=== PATIENT | female | born 1945 | race Caucasian/White ===

== ENCOUNTER 2017-10-21 06:29 | Day surgery (SDC) | payer MEDICARE ==
[2017-10-16 13:00] VITALS: BMI 33.2
[~2017-10-21 06:29] MED LIST: ALPRAZolam 0.25 MG TAB PO PRN; ASPIRIN 325 MG TAB PO STA; NITROGLYCERIN SL TABS 0.4 MG TAB SUBLINGUAL PRN; SODIUM CHLORIDE 0.9% 1,000 ML in EMPTY BAG 1 BAG IV ONE
[2017-10-21 07:06] LABS: Basophils # (A) 0.1 k/uL (0-0.2); Basophils % (A) 1 %; Eosinophils # (A) 0.3 k/uL (0-0.7); Eosinophils % (A) 3 %; HCT 42.8 % (34.0-46.0); HGB 13.9 gm/dL (11.4-16.0); Lymphocytes # (A) 2.8 k/uL (1.0-4.8); Lymphocytes % (A) 28 %; MCH 29.8 pg (25.0-35.0); MCHC 32.5 g/dL (31.0-37.0); MCV 91.7 fL (80.0-100.0); Mean Platelet Volume 8.4; Monocytes # (A) 0.7 k/uL (0-1.0); Monocytes % (A) 7 %; Neutrophils % (A) 60 %; Platelet Count 253 k/uL (150-450); RBC 4.66 m/uL (3.80-5.40); RDW 14.2 % (11.5-15.5); WBC 10.1 k/uL (3.8-10.6)
[2017-10-21 07:22] LABS: Anion Gap 13 mmol/L; Blood Urea Nitrogen 24 mg/dL (7-17); Calcium 9.6 mg/dL (8.4-10.2); Carbon Dioxide 20 mmol/L (22-30); Chloride 107 mmol/L (98-107); Glucose 164 mg/dL (74-99); Sodium 140 mmol/L (137-145)
[2017-10-21] MEDS ORDERED: MIDAZOLAM 2 MG/2 ML VIAL ONE (07:27)
[2017-10-21] MEDS ORDERED: LIDOCAINE 1% INJ 10MG/ML (20 ML MDV) ONE (07:27)
[2017-10-21] MEDS ORDERED: fentaNYL (PF) 50 MCG/ML 2 ML AMP ONE (07:27)
[2017-10-21] MEDS ORDERED: diphenhydrAMINE 50 MG/ML 1 ML VIAL ONE (07:36)
[2017-10-21 07:37] LABS: Potassium 4.9 mmol/L (3.5-5.1)
[2017-10-21] MEDS ORDERED: diphenhydrAMINE 50 MG/ML 1 ML VIAL IVP ONE (07:44)
[2017-10-21] MEDS ORDERED: MIDAZOLAM 2 MG/2 ML VIAL IVP ONE (07:44)
[2017-10-21] MEDS ORDERED: LIDOCAINE 1% INJ 10MG/ML (10 ML MDV) SQ ONE (07:46)
[2017-10-21] MEDS ORDERED: CLOPIDOGREL 75 MG TAB ONE (08:07)
[2017-10-21] MEDS ORDERED: CLOPIDOGREL 75 MG TAB PO ONE (08:08)
--- NOTE | 2017-10-21 08:30 | LTR ---
October 21, 2017 Dear Bridger: I performed cardiac catheterization on Chantel Ramirez. A detailed catheterization note is enclosed for your records. In brief, she presented to us with episodes of chest pressure associated with atrial fibrillation with rapid ventricular rate and also had ischemia in the inferior wall on a stress test. On the cardiac catheterization I performed, she has a 95% long segment of stenosis in the proximal right coronary artery for which she will undergo angioplasty. She also has a lesion in the LAD that we may or may not stent at this time. Thank you for allowing us to participate in this pleasant lady. Sincerely, MD ELLEN Dhillon / MARÍA: [id number] /
--- NOTE | 2017-10-21 08:30 | CC ---
CARDIAC CATHETERIZATION REPORT Referring physician is Dr. Maldonado. INDICATION: Unstable angina. PROCEDURE NOTE: After obtaining informed consent, left heart catheterization and coronary angiogram were performed via the right femoral artery using standard Roopa catheters. The patient tolerated the procedure well without any obvious immediate complications. A femoral angiogram was performed at the end of the procedure. The patient received moderate conscious sedation and total sedation time was 17 minutes. FINDINGS: 1. HEMODYNAMICS: Left ventricular end-diastolic pressure is 14 to 16 mm. There is no significant gradient across the aortic valve. 2. LEFT VENTRICULOGRAM: Left ventriculogram is not performed. 3. ANGIOGRAPHIC DATA: 4. Left main coronary artery: Left main coronary artery is a normal-sized vessel and is free of stenosis. Divides into left anterior descending coronary artery and circumflex coronary artery. LAD shows an area of plaque rupture with moderate to severe stenosis in the proximal part. It seems to be 50% to 70%. In some views, it appears like a 70% stenosis. Right coronary artery is a large dominant vessel shows a 95% long area of stenosis in the proximal part. CONCLUSIONS: 1. A 95% stenosis involving the proximal right coronary artery. 2. A 50% to 70% stenosis involving the proximal left anterior descending artery. PLAN: I reviewed angiographic data with Dr. Carroll. He will perform angioplasty of the right coronary artery. We may do an FFR of the LAD or we may treat her medically and do a stress test down the road and if she has ischemia in LAD bring her back and do LAD stenting. MMODL / IJN: [id number] /
[2017-10-21] MEDS ORDERED: BIVALIRUDIN 250 MG VIAL IV ONE (08:38)
[2017-10-21] MEDS ORDERED: BIVALIRUDIN 250 MG in SODIUM CHLORIDE 0.9% 50 ML IV ONE (08:41)
[2017-10-21] MEDS ORDERED: fentaNYL (PF) 50 MCG/ML 2 ML AMP IV ONE (08:41)
[2017-10-21] MEDS ORDERED: IOPAMIDOL-370 125ML BTL INJ ONE (08:45)
[2017-10-21] MEDS ORDERED: NITROGLYCERIN 1000MCG/10ML SYRINGE INTRACORON ONE (08:50)
[2017-10-21] MEDS ORDERED: IOPAMIDOL-370 100ML BTL INJ ONE (09:10)
[2017-10-21] MEDS ORDERED: MAG HYDROX/AL HYDROX/SIMETH 30 ML CUP PO PRN (09:17)
[2017-10-21] MEDS ORDERED: NITROGLYCERIN SL TABS 0.4 MG TAB SUBLINGUAL PRN ×2 (09:17→09:19)
[2017-10-21] MEDS ORDERED: ATROPINE SULFATE 0.1 MG/ML 10ML SYRINGE IV PRN (09:17)
[2017-10-21] MEDS ORDERED: RX INFO: IV CONTRAST WAS GIVEN 1 EACH MISC MISCELLANE PRN (09:17)
[2017-10-21] MEDS ORDERED: ZOLPIDEM 5 MG TAB PO PRN (09:17)
[2017-10-21] MEDS ORDERED: SODIUM CHLORIDE 0.9% 1,000 ML IV SCH (09:30)
--- NOTE | 2017-10-21 09:45 | PTCA ---
PERCUTANEOUSTRANS CORORONARY ANGIOGRAPHY Mrs. Ramirez is a 72-year-old female who presented recently with symptoms of paroxysmal atrial fibrillation as well as chest discomfort and had an abnormal myocardial perfusion imaging. She was evaluated by Dr. Griffin and underwent cardiac catheterization, was found to have critical stenosis involving the LAD and the right coronary artery. In view of that, recommendation was made regarding angioplasty and stenting. The procedure as well as the risks and complication were discussed with the patient who is in full understanding and agreement. PROCEDURE: A 6-Portuguese FR4 guiding catheter was introduced in the system. After cannulating the right coronary ostium, a 0.014 balanced medium weight J-wire was advanced across the lesion, positioned distally then a 2.5 x 12 mm Trek balloon was advanced in two inflations and maximum of 10 atmospheres were done. Following that the balloon was removed then a 3.0 x 18 mm Xience Alpine stent was deployed, postdilated at 16 atmospheres. After the last inflation, after appropriate wait, the balloon and the guidewire were withdrawn back in the guiding catheter. Images were obtained and repeated. Those images reveal stable successful stenting. At that point, the guiding catheter, the balloon and the guidewire were removed and a 6-Portuguese FR4 guiding catheter introduced in the system. After cannulating the left main, a 0.014 balanced medium weight J-wire was advanced into the distal LAD, positioned distally and a 2.75 x 15 mm Xience Alpine stent was advanced, deployed and postdilated at 14 atmospheres. After the last inflation, after appropriate wait, the balloon and the guidewire withdrawn back in the guiding catheter. Images were obtained and repeated. Those images reveal stable successful stenting. At that point, the guiding catheter, the balloon and the guidewire were removed. The sheath was removed. Hemostasis was obtained with deployment of an Angio-Seal. There was no immediate complication. Patient was returned to room in stable condition. Of note, the patient had chest discomfort and EKG changes with the inflation that resolved at the end procedure. She received Angiomax per protocol as well as oral loading dose of clopidogrel. She had bradycardia during the RCA inflations. RESULTS: 1. Successful stenting of the proximal right coronary artery with reduction of stenosis from 95% to 0%. 2. Successful stenting of the proximal left anterior descending artery with reduction of stenosis from 75% to 0%. RECOMMENDATION: Patient will be continued on aspirin, Plavix and statin. The importance of dual antiplatelet treatment were discussed with the patient and her family who are in full understanding and agreement. Further evaluation will need to be made regarding the issue of her paroxysmal atrial fibrillation. Duration of procedure is 32 minutes. ELLEN / CARIDADN: [id number] /
[2017-10-21] MEDS: ALBUTEROL NEBULIZED 2.5 MG/3 ML INHALATION PRN (16:07)
[2017-10-21] MEDS: SYMBICORT 80-4.5 MCG INHALER INHALATION SCH (20:28)
[2017-10-21] MEDS ORDERED: ATORVASTATIN 80 MG TAB PO SCH (21:00)
[2017-10-22 03:51] VITALS: TEMP 97.8
[2017-10-22 05:59] LABS: Glucose,Whole Blood 127 mg/dL (75-99)
[2017-10-22 07:20] LABS: Anion Gap 8 mmol/L; Blood Urea Nitrogen 15 mg/dL (7-17); Calcium 8.9 mg/dL (8.4-10.2); Carbon Dioxide 25 mmol/L (22-30); Chloride 107 mmol/L (98-107); Glucose 129 mg/dL (74-99); Potassium 4.4 mmol/L (3.5-5.1); Sodium 140 mmol/L (137-145)
[2017-10-22] MEDS ORDERED: PANTOPRAZOLE 40 MG TABLET PO SCH (07:30)
[2017-10-22 08:05] VITALS: BP 133/63; RESP 16
[2017-10-22] MEDS ORDERED: FLUTICASONE 50MCG/SPRAY NASAL 16GM EA NOSTRIL SCH (09:00)
[2017-10-22] MEDS ORDERED: DILTIAZEM CD 180 MG CAP.ER.24H PO SCH (09:00)
[2017-10-22] MEDS ORDERED: ASPIRIN 81 MG PO SCH (09:00)
[2017-10-22] MEDS: SYMBICORT 80-4.5 MCG INHALER INHALATION SCH (09:01)
[2017-10-22] MEDS: ALBUTEROL NEBULIZED 2.5 MG/3 ML INHALATION PRN (09:01)
[2017-10-22 09:15] VITALS: PULSE 72
[2017-10-22] MEDS ORDERED: CLOPIDOGREL 75 MG TAB PO SCH (09:18)
--- NOTE | 2017-10-22 10:55 | PN ---
PROGRESS NOTE Mrs. Ramirez is a 72-year-old female who presented with symptoms of angina pectoris and abnormal myocardial perfusion imaging, underwent cardiac catheterization by Dr. Griffin and was found to have critical stenosis involving the LAD and the right coronary artery, underwent stenting of both vessels. She is doing well this morning. Her breathing is stable. She is denying any chest pain. She denies any dizziness or palpitation. She is ambulating without any difficulty. She continues to be at this time on aspirin once a day, Plavix 75 mg daily, Lipitor 80 mg daily, diltiazem CD 180 mg daily. PHYSICAL EXAMINATION: Blood pressure 133/60 with the heart rate in the 80s. LUNGS: Clear. HEART: Regular rate and rhythm. S1, S2. No S3 with a systolic murmur, no diastolic murmur. ABDOMEN: Soft, nontender. EXTREMITIES: No edema. Right groin: No hematoma. EKG revealed sinus mechanism with no acute changes. LAB DATA: Lab data revealed BUN and creatinine 15 and 0.6. IMPRESSION: 1. Status post stenting of the right coronary artery and the left anterior descending artery, stable. 2. Paroxysmal atrial fibrillation could be related to the ischemic heart disease. 3. Hypertension. 4. Hyperlipidemia. RECOMMENDATION: The patient will be discharged home today and followed as an outpatient with Dr. Griffin. An evaluation will be done regarding the need to resume her anticoagulation at that time. MMODL / IJN: [id number] /
== END 2017-10-22 14:15 | disposition home or self-care (01) ==
LOC: CATHCVL 06:29 → 6SEL 13:09 → CATHCVL 10-22 14:15
PROVIDERS: ATTEND Internal Medicine Cardiovascular Disease
DX: I25.110 Atherosclerotic heart disease of native coronary artery with unstable angina pectoris (principal); I10 Essential (primary) hypertension; I48.0 Paroxysmal atrial fibrillation; I73.9 Peripheral vascular disease, unspecified; Z82.49 Family history of ischemic heart disease and other diseases of the circulatory system; Z79.01 Long term (current) use of anticoagulants; Z79.82 Long term (current) use of aspirin; Z79.899 Other long term (current) drug therapy; Z79.51 Long term (current) use of inhaled steroids; Z88.2 Allergy status to sulfonamides
CPT/HCPCS: 94640 ×4; 93458; 80048 ×2; 85025; C9600 ×2; C1769 ×2; C1760; C1887 ×2; C1725; C1894; C1874; J2250; J1200; J3010; J0583; J2001; Q9967 ×2

== ENCOUNTER → 2020-11-14 | Outpatient (CLI) | payer MEDICARE ==
--- NOTE | 2020-11-19 09:17 | MM ---
Reason for exam: screening (asymptomatic). Last mammogram was performed 1 year and 9 months ago. History: Patient is postmenopausal and is nulliparous. Family history of breast cancer in mother, breast cancer in grandmother, and breast cancer in sister. Benign excisional biopsy of the left breast, 1994. Physical Findings: A clinical breast exam by your physician is recommended on an annual basis and results should be correlated with mammographic findings. MG 3D Screening Mammo W/Cad Bilateral CC and MLO view(s) were taken. Prior study comparison: February 08, 2019, mammogram, performed at [facility]. May 12, 2017, mammogram, performed at [facility]. There are scattered fibroglandular densities. Stable benign calcifications. There is no discrete abnormality. No significant changes when compared with prior studies. ASSESSMENT: Benign, BI-RAD 2 RECOMMENDATION: Routine screening mammogram of both breasts in 1 year.
== END | disposition home or self-care (01) ==
LOC: RADMAMWWP 14:43
PROVIDERS: ATTEND Family Medicine
DX: Z12.31 Encounter for screening mammogram for malignant neoplasm of breast (principal); Z78.0 Asymptomatic menopausal state; Z80.3 Family history of malignant neoplasm of breast
CPT/HCPCS: 77063; 77067

== ENCOUNTER → 2021-11-29 | Outpatient (CLI) | payer MEDICARE ==
--- NOTE | 2021-12-02 09:22 | MM ---
Reason for Exam: Screening (asymptomatic). Last screening mammogram was performed 12 month(s) ago. Patient History: Menarche at age 15. Patient has no children. Left ovary removed at age 50. Right ovary removed at age 50. Hysterectomy at age 50. Postmenopausal. Ovarian cancer, age 50. 1995, Benign Excisional Biopsy on the left side. Maternal grandmother had breast cancer. Sister had breast cancer, age 52. Mother had breast cancer, age 70. Risk Values: Anjana 5 year model risk: 7.2%. NCI Lifetime model risk: 15.8%. Prior Study Comparison: 05/12/2017 Screening Mammogram, [facility]. 02/08/2019 Screening Mammogram, [facility]. 11/14/2020 Bilateral Screening Mammogram, [facility]. Tissue Density: There are scattered fibroglandular densities. Findings: Analyzed By CAD. There are scattered benign-appearing round and linear calcifications throughout the bilateral breasts redemonstrated. There is no suspicious group of microcalcifications or new suspicious mass in either breast. Overall Assessment: Benign, BI-RAD 2 Management: Screening Mammogram of both breasts in 1 year. A clinical breast exam by your physician is recommended on an annual basis and results should be correlated with mammographic findings. Electronically signed and approved by: Tung Medellin M.D.
== END | disposition home or self-care (01) ==
LOC: RADMAMWWP 16:16
PROVIDERS: ATTEND Family Medicine
DX: Z12.31 Encounter for screening mammogram for malignant neoplasm of breast (principal); Z78.0 Asymptomatic menopausal state; Z80.3 Family history of malignant neoplasm of breast
CPT/HCPCS: 77063; 77067

== ENCOUNTER → 2024-09-08 | Outpatient (CLI) | payer MEDICARE ==
--- NOTE | 2024-09-08 12:29 | CT ---
EXAMINATION TYPE: CT sinus wo con DATE OF EXAM: 09/08/2024 12:11 PM COMPARISON: None. CLINICAL INDICATION: Female, 79 years old with history of J32.9 CHRONIC SINUSITIS, UNSPECIFIED; , Chr onic sinusitis. TECHNIQUE: Multiple thin axial images were obtained through the paranasal sinuses. Additional coronal and sagittal reformatted images were submitted for evaluation. Contrast used: none Oral contrast used: none CT DLP: 430 mGycm, Automated exposure control for dose reduction was used. FINDINGS: Frontal sinuses: Hypoplastic right and aplastic left. Frontal Recess: Clear Maxillary Sinuses: Normally developed with scattered mild mucosal thickening. Maxillary Infundibula([facility]): Antrostomy changes bilaterally, No Cornel cells identified. Ethmoid sinuses: Normally developed and aerated. Ethmoidal notch: Protected and abutting the lateral lamina. Sphenoid sinuses: Hypoplastic/aplastic left. Normal right. There is presellar sphenoid sinus pneumati zation without evidence of dehiscence. No dehiscence of carotid canal. No evidence of optic nerve de hiscence within the sphenoid sinus. No evidence of Onodi cells. Sphenoethmoidal recesses: Clear. Nasal septum: Rightward deviated septum anteriorly. Nasal Turbinates: Surgically absent left middle turbinate. Mild mucosal thickening of the remaining t urbinates. Mastoid air cells & middle ears: The air cells are clear. The middle ears are grossly unremarkable. Modified Soft tissues & Brain: Partially seen without gross abnormality. Bilaterally aphakia.. Mild a therosclerosis of the intracranial vasculature. Other: Cribriform plate demonstrates symmetric Keros classification type 2 cribriform plate. No evidence of bony dehiscence of skull base. Lamina papyracea is intact without evidence of remote orbital fracture or orbital prolapse into the e thmoid sinus. IMPRESSION: 1. Postsurgical changes with Antrostomy changes bilaterally . Mild mucosal thickening of the turbinat es. Paranasal sinuses are relatively clear. 2. The frontonasal and sphenoethmoidal recesses are clear. [facility], , 09/08/2024 12:27 PM
== END | disposition home or self-care (01) ==
LOC: RADCTMAIN 11:51
PROVIDERS: ATTEND Otolaryngology
DX: J32.9 Chronic sinusitis, unspecified (principal); J34.89 Other specified disorders of nose and nasal sinuses; Z98.890 Other specified postprocedural states
CPT/HCPCS: 70486